=== PATIENT | male | born 1980 | race Caucasian/White ===

== ENCOUNTER 2017-03-31 15:10 | Emergency (ER) | payer SELFPAY ==
[~2017-03-31] VITALS: Ht 195.6 cm; Wt 158.8 kg
[~2017-03-31 15:10] MED LIST: AMOX500C2 PO; CLIN150C17 PO; FLT05NA16 IN; HCT25T PO; HYDR-757 PO; LRT10T PO; PSEU120T50 PO
--- NOTE | 2017-03-31 16:46 | Diagnostic Imaging Report ---
EXAM: HAND, RIGHT, 3 VIEWS INDICATION: Right hand injury. COMPARISON: None. FINDINGS: Comminuted mildly displaced fracture of the right fifth distal metacarpal diaphysis extending in to the head. This does not appear to be intra-articular. There is mild volar angulation. IMPRESSION: Comminuted mildly displaced fracture of the distal right fifth metacarpal. Dictated by: Dictated on workstation # [id number]
[2017-03-31] MEDS ORDERED: ACETAMINOPHEN 500 MG TAB (TYLENOL) PO STA (17:50)
[2017-03-31] MEDS ORDERED: HYDR-3816 PO (18:22)
--- NOTE | 2017-03-31 18:26 | ED Upper Extremity ---
General Chief Complaint: Upper Extremity Stated Complaint: R HAND PAIN Nursing Triage Note: Pt. advises yesterday morning he went to grab a new family puppy away from the family dog and when he did, lost his balance and fell onto a coffee table. Pt. advises he caught himself with his right hand and advises the table broke at the time of the incident. The patient now has swelling to the back of his right hand. Nursing Sepsis Screen: No Definite Risk Source: patient Exam Limitations: no limitations History of Present Illness Time seen by provider: 17:30 Initial Comments 37-year-old male patient presents to the emergency department complaints of right hand pain after tripping over a coffee table yesterday. Reports catching himself with his right hand. Now complains of right hand pain and swelling. Location Injury Occurred: home Onset: yesterday Pain/Injury Location: right hand Method of Injury: fell Modifying Factors: Improves With Immobilization, Worse With Movement Allergies and Home Medications Allergies Coded Allergies: No Known Drug Allergies (Unverified , 12/05/11) Home Medications Amoxicillin 500 Mg Capsule, 1 EACH PO TID for 10 Days, Ref 0 Prescribed by: THALIA KERNS on 12/05/11 0429 Clindamycin HCl 150 Mg Capsule, 450 MG PO TID, #63 Prescribed by: AZRA RICHMOND on 05/07/16 1118 Fluticasone Propionate 16 Gm [place]on, 2 SPRAY IN BID, (Reported) Hydrochlorothiazide 25 Mg Tab, 25 MG PO DAILY, (Reported) Hydrocodone/Acetaminophen 1 Each Tablet, 1 EACH PO Q4H PRN for PAIN, #10 Do not fill unless clindamycin is also filled. Clindamycin has been sent electronically to [facility]. Prescribed by: AZRA RICHMOND on 05/07/16 1136 Hydrocodone/Acetaminophen 1 Each Tablet, 1 EACH PO Q4H PRN for PAIN-MILD TO MODERATE, #30 Ref 0 Prescribed by: CORI PRECIADO on 03/31/17 1822 Loratadine 10 Mg Tab, 10 MG PO DAILY, (Reported) Pseudoephedrine Sulfate 120 Mg Tablet.sa, 120 MG PO BID, (Reported) Constitutional: no symptoms reported Respiratory: No no symptoms reported Cardiovascular: No no symptoms reported Musculoskeletal: see HPI, No back pain, joint pain, joint swelling, No neck pain Skin: change in color (bruising right hand) Psychiatric/Neurological: Denies Headache, Denies Numbness, Denies Paresthesia , Denies Tingling, Denies Weakness All Other Systems Reviewed Negative Unless Noted: Yes (Negative excepted noted.) Past Bahsbzf-Ynnaih-Ygbxzk Hx Patient Social History Alcohol Use: Denies Use Recreational Drug Use: No Smoking Status: Current Everyday Smoker Type Used: Cigars 2nd Hand Smoke Exposure: No Recent Foreign Travel: No Contact w/Someone Who Travel: No Recent Infectious Disease Expo: No Recent Hopitalizations: No Seasonal Allergies Seasonal Allergies: No Surgeries HX Surgeries: Yes Surgeries: Tonsillectomy Respiratory Hx Respiratory Disorders: No Cardiovascular Hx Cardiac Disorders: No Neurological Hx Neurological Disorders: No Genitourinary Hx Genitourinary Disorders: No Gastrointestinal Hx Gastrointestinal Disorders: No Musculoskeletal Hx Musculoskeletal Disorders: Yes Musculoskeletal Disorders: Fractures Reviewed Nursing Assessment Reviewed/Agree w Nursing PMH: Yes Family Medical History Significant Family History: No Pertinent Family Hx Physical Exam Vital Signs Vital Sign - Last 12Hours 03/31/17 17:12 Temp 98.6 Pulse 80 Resp 14 B/P (MAP) 104/76 Pulse Ox 98 O2 Delivery Room Air Capillary Refill : Less Than 3 Seconds General Appearance: WD/WN, no apparent distress Cardiovascular: normal peripheral pulses, regular rate, rhythm, no murmur Respiratory: lungs clear, normal breath sounds, no respiratory distress Shoulder: normal inspection, non-tender, no evidence of injury, normal ROM Elbow/Forearm: normal inspection, non-tender, no evidence of injury, normal ROM , Right Wrist: Yes normal inspection, Yes non-tender, Yes no evidence of injury, Yes normal ROM Hand: Right, bone tenderness (overlying the fourth and fifth metacarpals), ecchymosis, limited ROM, soft tissue tenderness, swelling Neurologic/Tendon: normal sensation, normal motor functions, normal tendon functions, responds to pain, no evidence tendon injury Neurologic/Psychiatric: no motor/sensory deficits, alert, normal mood/affect, oriented x 3 Skin: normal color, warm/dry, ecchymosis (right hand) Splinting and Joint Reduction : Location: right hand Pre-Proc Neuro Vasc Exam: normal Post-Proc Neuro Vasc Exam: normal Arm Sling: Large Hand-Made Type: orthoglass Splint Application: Short Arm (ulnar gutter) Progress/Results/Core Measures Results/Orders My Orders Orders - CORI PRECIADO Hand, Right, 3 Views (03/31/17 16:01) Acetaminophen Tablet (Tylenol Tablet) (03/31/17 17:50) Padded Arm Sling Large (03/31/17 17:50) Vital Signs/I&O Blood Pressure Mean: 85 Diagnostic Imaging Diagonstic Imaging: Xray Plain Films/CT/US/NM/MRI: hand Comments FINDINGS: Comminuted mildly displaced fracture of the right fifth distal metacarpal diaphysis extending in to the head. This does not appear to be intra-articular. There is mild volar angulation. IMPRESSION: Comminuted mildly displaced fracture of the distal right fifth metacarpal. Dictated by: Dictated on workstation # [id number] Reviewed: Reviewed by Me (radiology report reviewed by me) Departure Communication Progress Notes Diagnostic findings discussed with the patient. Plan for discharge to home with follow-up as an outpatient with orthopedics. Impression Impression: Primary Impression: Fracture of fifth metacarpal bone of right hand Qualified Codes: S62.396A - Other fracture of fifth metacarpal bone, right hand, initial encounter for closed fracture Disposition: HOME, SELF-CARE Condition: Improved Departure-Patient Inst. Decision time for Depature: 18:21 Referrals: NO,LOCAL PHYSICIAN (Family) Primary Care Physician SIL RUBIN MD Patient Instructions: How to Use a Shoulder Sling, Hand Fracture (DC) Add. Discharge Instructions: All discharge instructions reviewed with patient and/or family. Voiced understanding. Medications as instructed. No motrin or aleve. elevate the rt hand on pillows. arm sling as instructed. keep the splint clean and dry. ice pack for [address] min [address] followup with Dr. Rubin for recheck in the next 7 days. call sunday morning for appointment time. return to the emergency department for worsened pain, discoloration of the fingers, or any other concerns. Scripts Hydrocodone/Acetaminophen (Hydrocodon-Acetaminoph 7.5-325) 1 Each Tablet 1 EACH PO Q4H Y for PAIN-MILD TO MODERATE, #30 TAB 0 Refills Prov: CORI PRECIADO 03/31/17 CORI PRECIADO Mar 31, 2017 18:26
[2017-03-31 19:29] VITALS: BP 112/79
== END 2017-03-31 18:36 | disposition home or self-care (01) ==
LOC: EDUNIT# 15:10 → ER 15:12
DX: S62.326A Displaced fracture of shaft of fifth metacarpal bone, right hand, initial encounter for closed fracture (principal); F17.210 Nicotine dependence, cigarettes, uncomplicated; W18.09XA Striking against other object with subsequent fall, initial encounter; Y92.009 Unspecified place in unspecified non-institutional (private) residence as the place of occurrence of the external cause; Y99.8 Other external cause status
CPT/HCPCS: 29125; 73130